=== PATIENT | male | born 2000 | race Caucasian/White ===

== ENCOUNTER 2023-11-18 16:53 | Emergency (ER) | payer BC ==
[2023-11-18] MEDS: KETOROLAC 15 MG/ML 1 ML VIAL IM STA (17:26)
[2023-11-18 17:39] VITALS: RESP 18; TEMP 98.4
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
[2023-11-18 20:47] VITALS: BP 147/81; PULSE 80
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
== END 2023-11-18 20:30 | disposition home or self-care (01) ==
LOC: EC 16:53
DX: S42.002A Fracture of unspecified part of left clavicle, initial encounter for closed fracture (principal); F17.290 Nicotine dependence, other tobacco product, uncomplicated; V89.2XXA Person injured in unspecified motor-vehicle accident, traffic, initial encounter; Y92.411 Interstate highway as the place of occurrence of the external cause
CPT/HCPCS: 73000; 71046; 99284; 96372; J1885